=== PATIENT | female | born 1945 | race Caucasian/White ===

== ENCOUNTER → 2016-09-09 | Outpatient (CLI) | payer BC, MEDICARE ==
[~2016-09-09] MED LIST: CALC600T13 PO; CALC600T34 PO; CRAN125T PO; FLON0.053; FLUT1SPR5 EACH NARE; HYDR200T42 PO; LEVO125T3 PO; LEVO125T4 PO; MONT1GRA PO; MULT-135 PO; OMEP10CA PO; PLAQ200T PO; SING4GRA PO; TAB-TAB PO; WELL150T PO; WELLTAB39 PO
[2016-09-09 15:08] LABS: AUTOMATED NEUTROPHIL # 3.9 TH/MM3 (1.8-7.7); BASOPHIL # 0.1 TH/MM3 (0-0.2); BASOPHIL % 0.7 % (0.0-2.0); EOSINOPHIL # 0.3 TH/MM3 (0-0.4); HEMATOCRIT 41.9 % (35.0-46.0); HEMO FLAGS DIFF FINAL; LYMPH % 29.2 % (9.0-44.0); LYMPHOCYTE # 2.1 TH/MM3 (1.0-4.8); MEAN CELL VOLUME 92.5 FL (80.0-100.0); MEAN CORPUSCULAR HEMOGLOBIN 30.9 PG (27.0-34.0); MEAN CORPUSCULAR HGB CONC 33.4 % (32.0-36.0); MONO % 12.4 % (0.0-8.0); NEUT % 53.7 % (16.0-70.0); PLATELET COUNT 246 TH/MM3 (150-450); RED BLOOD COUNT 4.53 MIL/MM3 (4.00-5.30); RED CELL DISTRIBUTION WIDTH 13.4 % (11.6-17.2); WHITE BLOOD COUNT 7.2 TH/MM3 (4.0-11.0)
== END ==
LOC: CPRE 14:01
PROVIDERS: ATTEND Ophthalmology
DX: Z01.812 Encounter for preprocedural laboratory examination (principal); H26.9 Unspecified cataract
CPT/HCPCS: 36415; 85025

== ENCOUNTER → 2016-09-16 | Day surgery (SDC) | payer BC, MEDICARE ==
--- NOTE | 2016-09-09 17:57 | MH ---
cc: MITA MONREAL M.D. DATE OF ADMISSION 09/16/2016 ADMISSION DIAGNOSIS Cataract right eye. HISTORY OF PRESENT ILLNESS This 71-year-old white female is coming through [facility] surgery for the purpose of a lens extraction of the right eye with intraocular lens implant under local anesthesia. She had a similar procedure on the left eye in April of 2016 and did well postoperatively and now requests cataract surgery for her right eye. Her best corrected visual acuity in room light is 20/30 in the right eye and 20/20 -2 in the left. PAST MEDICAL HISTORY 1. The patient has a history multiple sclerosis. 2. Graves disease. 3. Bladder problems. 4. Lupus with a rash. 5. ITP idiopathic thrombocytopenia purpura. 6. Osteoporosis. 7. Acid reflux. PAST SURGICAL HISTORY Includes: 1. Tonsillectomy at age 4. 2. And the above-mentioned cataract surgery in her left eye in April of 2016. MEDICATIONS Daily medications include: 1. Plaquenil 200 milligrams five times a week. 2. Singulair. 3. Bupropion. 4. Levoxyl. 5. Multivitamins. 6. . 7. Fluticasone nasal spray. 8. Zyrtec. 9. Omeprazole. ALLERGIES SHE IS ALLERGIC TO SULFA. SOCIAL HISTORY She does not smoke or drink. FAMILY HISTORY Positive for mother with cataracts. REVIEW OF SYSTEMS HEAD: Patient denies severe headaches, dizziness or recent head injury. EARS: Patient denies hearing loss, ear pain, discharge or ringing in the ears. NOSE: The patient gets shots for allergies but has some nasal discharge and uses singulair. Patient nasal obstruction or frequent colds. MOUTH AND THROAT: Patient denies soreness of the mouth or tongue, bleeding gums, trouble swallowing, changes in voice or sore throat. NECK: Patient denies neck pain or swelling, limitation of neck movement or neck injury. CARDIOPULMONARY SYSTEM: Patient denies shortness of breath, orthopnea, chronic cough, sputum production, hemoptysis, chest pain, wheezing, palpitations or light-headedness. GI SYSTEM: Patient denies poor appetite, nausea, vomiting, abdominal pain, ulcers, hemorrhoids or change in bowel habits. SYSTEM: The patient denies urinary frequency, dysuria, change in urine color. NERVOUS SYSTEM: Patient denies convulsions, vertigo, stroke, numbness or weakness. PHYSICAL EXAMINATION VITAL SIGNS: Blood pressure 126/72, pulse 88, respirations 16. HEAD: Normocephalic, atraumatic. NOSE: Without rhinorrhea. Throat clear. NECK: Supple. CHEST: Clear. HEART: Regular rhythm. ABDOMEN: Without tenderness. EXTREMITIES: Without edema. NEUROLOGICAL: Within normal limits. MENTAL STATUS: Within normal limits. EYE EXAMINATION The patient's best corrected visual acuity is 20/30 in the right eye in room light and 20/20 -2 in the left. Visual coburn are full to confrontation testing. Extraocular muscle exam reveals full versions with orthophoria at distance and near. Pupils are 3 mm equal, round, reactive to light without afferent defect. Anterior segment examination reveals iris nevus in the right eye. There is a nuclear sclerotic cataract in the right eye and a posterior chamber intraocular lens in the left. Intraocular pressure is 17 in each eye by applanation tonometry. Dilated fundus exam revealed sharp disks with cup-to-disk ratio 0.2 bilaterally. Macula is clear bilaterally. A posterior vitreous detachment is present bilaterally. And there is a choroidal nevus superior to the disk in the left eye which is one disk diameter in size and has drusen on it. IMPRESSION 1. Cataract right eye. 2. Pseudophakia left eye. 3. Posterior vitreous detachment both eyes. 4. Choroidal nevus, left eye. 5. Iris nevus right. PLAN And the plan is lens extraction of the right eye with intraocular lens implant under local anesthesia through [facility] surgery. The patient has been cleared medically. She has been counseled as to the risks, benefits and alternatives and elected to proceed. I feel that cataract surgery will improve the quality of life and activities of daily living in this patient. MD ARLIN Rasmussen/NAZ /3:24 PM /5:44 PM
[~2016-09-16] VITALS: Ht 154.9 cm; Wt 74.5 kg
[~2016-09-16] MED LIST changes: +ACETAMINOPHEN 500 MG CPLT ONE; +ACETYLCHOLINE CHL OPHT SOLN 1:100 2 ML VIAL ONE; -CALC600T34 PO; +EPINEPHrine HCL (1:1000) 1 MG/ML VIAL ONE; -FLON0.053; +HYALURONIDASE/LIDOCAINE/BUPIVACAINE 4.5 ML SYR ONE; +HYALURONIDASE/LIDOCAINE/BUPIVACAINE 4.5 ML SYR RIGHT EYE ONE; +HYALURONIDASE/LIDOCAINE/BUPIVACAINE 6 ML SYR ONE; +HYALURONIDASE/LIDOCAINE/BUPIVACAINE 6 ML SYR RIGHT EYE ONE; -HYDR200T42 PO; -LEVO125T3 PO; +MIDAZOLAM HCL 2 MG/2 ML VIAL ONE; +PROPARACAINE HCL 0.5% OPHT SOLN 15 ML BTL RIGHT EYE ONE; +PROPOFOL 200 MG/20 ML AMP ONE; -SING4GRA PO; +SODIUM CHLORID 0.9% 500 ML INJ 500 ML ONE; -TAB-TAB PO; +VISCOAT OPHT IRRIG SOLN 0.75 ML SYRINGE RIGHT EYE ONE; -WELL150T PO
[2016-09-16 08:35] VITALS: PULSE 68
[2016-09-16 09:35] VITALS: PULSE 68
[2016-09-16] MEDS: PHENYLEPHRINE HCL 2.5% OPTH SOLN 2 ML BTL RIGHT EYE SCH ×4 (09:40→09:49)
[2016-09-16] MEDS: GATIFLOXACIN 0.5% OPHT SOLN 2.5 ML BTL RIGHT EYE SCH ×4 (09:40→09:49)
[2016-09-16] MEDS: CYCLOPENTOLATE HCL 1% OPHT SOLN 2 ML BTL RIGHT EYE SCH ×4 (09:40→09:49)
[2016-09-16] MEDS: DICLOFENAC SOD 0.1% OPHT SOLN 2.5 ML BTL RIGHT EYE SCH ×4 (09:40→09:49)
[2016-09-16] MEDS: TROPICAMIDE 1% OPHT SOLN 15 ML BTL RIGHT EYE SCH ×4 (09:40→09:49)
[2016-09-16 11:05] VITALS: PULSE 71
[2016-09-16] MEDS: PILOCARPINE HCL 2% OPHT SOLN 15 ML BTL ONE ×2 (12:30→13:33)
[2016-09-16] MEDS: TOBRAMYCIN/DEXAMETHASONE OPTH OINT 3.5 GM TUBE ONE ×2 (12:31→13:34)
[2016-09-16 13:45] VITALS: TEMP 98.1
[2016-09-16 14:15] VITALS: BP 142/68; PULSE 66; RESP 14; O2SAT 99
--- NOTE | 2016-09-19 14:47 | MP ---
cc: MITA LEDBETTER DATE OF SURGERY 09/16/2016 PREOPERATIVE DIAGNOSIS Cataract right eye POSTOPERATIVE DIAGNOSIS Cataract right eye OPERATIVE Extracapsular cataract extraction with posterior chamber intraocular lens implant by phacoemulsification, right eye. SURGEON Mita Ledbetter M.D. ANESTHESIA Local COMPLICATIONS None INDICATIONS See history and physical previously dictated. OPERATIVE PROCEDURE The patient had adequate retrobulbar and eyelid blocks administered in the holding area and was brought to the operating room. The right eye was prepped and draped in the usual sterile ophthalmic manner. A lid speculum was inserted in the right eye. A 4-0 silk bridle suture was placed through the conjunctiva near the superior rectus muscle and it was tagged to the drape. A fornix-based conjunctival flap was prepared spanning approximately 5 mm in width. Hemostasis was obtained with wet-field cautery. A 3.5 mm groove was made 1 mm from the limbus and dissected up to the limbus in the form of a scleral pocket incision. A stab incision was then made at the 2 o'clock position. Viscoelastic was injected into the anterior chamber. The anterior chamber was entered with a 2.75 mm keratome through the scleral pocket incision. A 360 degree continuous curvilinear capsulorrhexis was then performed. At this point, the iris was prolapsing through the wound. It was reposited using viscoelastic and the wound was closed with one interrupted 10-0 nylon suture. Another incision was then made more temporally and near the limbus of the clear cornea with the 2.75 mm keratome blade. Hydrodissection was then utilized to divide the nucleus into inner and outer components to separate the cortex from the capsule. Phacoemulsification was then utilized to remove the nucleus. The outer nuclear layer was removed with irrigation and aspiration and short bursts of ultrasound as necessary. The cortex was removed with the irrigation/aspiration handpiece. The posterior capsule was polished with the capsule polisher. Viscoelastic was injected into the capsular bag. The intraocular lens was inspected and found to be in good condition. The lens utilized was a right, model number Tito model SA60AT with a power of +17.5 diopters. The lens was inserted into the capsular bag. The viscoelastic in the anterior chamber was then removed with the irrigation-aspiration handpiece. Viscoelastic was also removed from beneath the intraocular lens. The anterior chamber was filled with Miochol-E through the stab incision and pressurized. The wound was closed with one interrupted 10-0 nylon suture. The wound was checked for leaks and there none. The 4-0 bridle suture was removed. The conjunctival flap was brought down over the wound and secured with cautery. Pilocarpine 2% eye drops were instilled topically. The lid speculum was removed. TobraDex ophthalmic ointment was applied. The eye was double patched and shielded. The patient tolerated the procedure well and left the Operating Room in satisfactory condition. MD ARLIN Rasmussen/AUGUSTINE /2:32 PM /2:36 PM
== END | disposition home or self-care (01) ==
LOC: CSDC 08:59
PROVIDERS: ATTEND Ophthalmology
DX: H26.9 Unspecified cataract (principal); G35 Multiple sclerosis; E05.00 Thyrotoxicosis with diffuse goiter without thyrotoxic crisis or storm; M32.9 Systemic lupus erythematosus, unspecified; M81.0 Age-related osteoporosis without current pathological fracture; K21.9 Gastro-esophageal reflux disease without esophagitis; D69.3 Immune thrombocytopenic purpura; Z96.1 Presence of intraocular lens
CPT/HCPCS: 66984; 99152; 99153; J0171; J2250; J7040; V2632

== ENCOUNTER → 2017-10-06 | Outpatient (CLI) | payer MEDICARE ==
--- NOTE | 2017-10-01 15:26 | MH ---
cc: MITA MONREAL DATE OF ADMISSION 10/06/2017 ADMISSION DIAGNOSIS Cloudy posterior capsule, left eye. HISTORY OF PRESENT ILLNESS This 72-year-old white female is coming through [facility] for the purpose of a YAG laser posterior capsulotomy of the left eye. She is status post bilateral cataract surgery with intraocular lens implants and has done well postoperatively but now notices some hazy posterior capsule effects which were found on examination, and had elected to have a YAG laser posterior capsulotomy of the left eye at this time. PAST MEDICAL HISTORY 1. The patient has a history of multiple sclerosis. 2. Graves disease. 3. Bladder problems. 4. Lupus with a rash. 5. Idiopathic thrombocytopenia purpura. 6. Osteoporosis. 7. Acid reflux. PAST SURGICAL HISTORY 1. Tonsillectomy at age 4. 2. Bilateral cataract surgery with intraocular lens implants. MEDICATIONS Daily medications include: 1. Plaquenil. 2. Bupropion. 3. Fluticasone. 4. Levothyroxine. 5. Zyrtec. 6. Multivitamins. 7. Cranactin. 8. Singulair. ALLERGIES SULFA. SOCIAL HISTORY Noncontributory. FAMILY HISTORY Family history is positive for mother with cataract. REVIEW OF SYSTEMS Noncontributory. OCULAR EXAM The patient's best corrected visual acuity in room light is 20/25 +2 in the right eye and 20/40 +1 in the left. Visual coburn are full to confrontation testing. Extraocular muscle exam reveals full versions with orthophoria at distance and near. Pupils are 3 mm equal, round, reactive to light without afferent defect. Anterior segment examination reveals a posterior chamber intraocular lens implant bilaterally with a cloudy posterior capsule greater in the left eye than the right. Intraocular pressure is 14 in the right eye and 15 in the left by applanation tonometry. Dilated fundus exam revealed sharp disks with cup-to-disk ratio at 0.2 bilaterally. The macula is clear bilaterally. A posterior vitreous detachment is present bilaterally. A choroidal nevus is noted in the left eye nasally one disk diameter in size with drusen present. IMPRESSION 1. Cloudy posterior capsule left eye greater than right. 2. Pseudophakia, both eyes. 3. Choroidal nevus, left eye. 4. High-risk medication use - Plaquenil. PLAN YAG laser posterior capsulotomy of the left eye through [facility]. MD ARLIN Rasmussen/POP /11:52 AM /3:08 PM
[~2017-10-06] MED LIST changes: -ACETAMINOPHEN 500 MG CPLT ONE; -ACETYLCHOLINE CHL OPHT SOLN 1:100 2 ML VIAL ONE; +BALANCED SALT SOLN OPHT IRRIG 15 ML BTL ONE; -EPINEPHrine HCL (1:1000) 1 MG/ML VIAL ONE; +FLUOROMETHOLONE 0.25% OPHT SUSP 5 ML BTL ONE; -HYALURONIDASE/LIDOCAINE/BUPIVACAINE 4.5 ML SYR ONE; -HYALURONIDASE/LIDOCAINE/BUPIVACAINE 4.5 ML SYR RIGHT EYE ONE; -HYALURONIDASE/LIDOCAINE/BUPIVACAINE 6 ML SYR ONE; -HYALURONIDASE/LIDOCAINE/BUPIVACAINE 6 ML SYR RIGHT EYE ONE; -MIDAZOLAM HCL 2 MG/2 ML VIAL ONE; +PHENYLEPHRINE HCL 2.5% OPTH SOLN 2 ML BTL ONE; +PROPARACAINE HCL 0.5% OPHT SOLN 15 ML BTL ONE; -PROPARACAINE HCL 0.5% OPHT SOLN 15 ML BTL RIGHT EYE ONE; -PROPOFOL 200 MG/20 ML AMP ONE; -SODIUM CHLORID 0.9% 500 ML INJ 500 ML ONE; +TROPICAMIDE 1% OPHT SOLN 15 ML BTL ONE; -VISCOAT OPHT IRRIG SOLN 0.75 ML SYRINGE RIGHT EYE ONE
--- NOTE | 2017-10-07 16:07 | MP ---
cc: MITA LEDBETTER M.D. DATE OF SURGERY: 10/06/2017 PREOPERATIVE DIAGNOSIS: Cloudy posterior capsule left eye. POSTOPERATIVE DIAGNOSIS: Cloudy posterior capsule left eye. OPERATION: YAG laser posterior capsulotomy, left eye. SURGEON: Mita Ledbetter MD ANESTHESIA: Topical. COMPLICATIONS: None. INDICATIONS: See history and physical previously dictated. PROCEDURE: The patient arrived at [facility]. Blood pressure was 135/62, pulse 65, respirations 18. A drop of Alphagan P and Mydriacyl were instilled in the left eye. The patient was seated at the YAG laser. A drop of Alcaine was instilled in the left eye and a YAG laser posterior capsulotomy lens was placed on the anterior surface of the left cornea. YAG laser posterior capsulotomy was carried out utilizing 27 exposures of 1.6 millijoules. An adequate opening was seen following the procedure. A drop of Alphagan P was instilled topically. The patient was given a prescription for a topical steroid to be used four times per day and has an appointment for follow up on the first postoperative day in my office. The patient left the [facility] in satisfactory condition. MD ARLIN Rasmussen/librado /12:32 PM /3:50 PM .5
== END ==
LOC: PHSDC 09:28
PROVIDERS: ATTEND Ophthalmology
DX: H26.492 Other secondary cataract, left eye (principal); D31.32 Benign neoplasm of left choroid; Z96.1 Presence of intraocular lens; E05.00 Thyrotoxicosis with diffuse goiter without thyrotoxic crisis or storm; D69.3 Immune thrombocytopenic purpura; M81.0 Age-related osteoporosis without current pathological fracture; K21.9 Gastro-esophageal reflux disease without esophagitis; G35 Multiple sclerosis